=== PATIENT | female | born 1995 | race Caucasian/White ===

== ENCOUNTER 2017-07-12 20:50 | Emergency (ER) | payer SELFPAY ==
[~2017-07-12] VITALS: Ht 165.1 cm; Wt 86.7 kg
[~2017-07-12 20:50] MED LIST: BENADRYL25 MG PO; PEPCID40 MG PO; PREDNISONE20 MG PO
[2017-07-12 21:26] LABS: HEMATOCRIT 38.5 % (36.0-46.0); HEMOGLOBIN 12.9 G/DL (11.9-15.5); MCH 30.4 PG (29.0-34.0); MCHC 33.5 G/DL (30.0-36.0); MCV 90.8 FL (83-99); PLATELET COUNT 272 K/uL (156-360); RBC DIS.WIDTH-CV 11.6 % (11.8-14.6); RBC DIS.WIDTH-SD 38.3 % (39-53); RED BLOOD COUNT 4.24 M/uL (3.80-5.20); WHITE BLOOD COUNT 9.1 K/uL (4.1-10.2)
[2017-07-12 21:37] LABS: ALBUMIN 4.4 g/dL (3.2-4.8); CHLORIDE 107 mEq/L (99-109); SODIUM 139 mEq/L (136-147)
[2017-07-12 21:39] LABS: GLUCOSE 106 mg/dL (70-99); TOTAL PROTEIN 6.7 g/dL (6.4-8.3)
[2017-07-12 21:41] LABS: TOTAL BILIRUBIN 1.1 mg/dL (0.0-1.0)
[2017-07-12 21:43] LABS: ALKALINE PHOSPHATASE 78 IU/L (3-129); CREATININE 0.8 mg/dL (0.6-1.3); GFR ESTIMATE (CALCULATED) > 59 mL/min/
[2017-07-12 21:44] LABS: AST (GOT) 19 IU/L (2-34); UREA NITROGEN (BUN) 12 mg/dL (9-23)
[2017-07-12 21:46] LABS: ALT (GPT) 30 IU/L (3-49)
[2017-07-12 21:51] LABS: QUANTITATIVE HCG < 4.0 MIU/ML
[2017-07-12 22:08] LABS: APPEARANCE SL.HAZY ((CLEAR)); BILIRUBIN NEGATIVE; BLOOD NEGATIVE; COLOR YELLOW ((YELLOW)); GLUCOSE (STRIP) NEGATIVE; KETONES NEGATIVE; LEUKOCYTES TRACE; NITRITE NEGATIVE; PROTEIN (STRIP) NEGATIVE; SPECIFIC GRAVITY 1.034 (1.000-1.030); UROBILINOGEN 0.2 MG/DL (0.2-1.0)
[2017-07-12 22:16] LABS: BACTERIA NONE SEEN /HPF; EPITHELIAL CELLS 2+ /HPF; MUCUS TRACE /LPF; RED BLOOD CELLS 0-5 /HPF (0-5); UCUL ADDED? NO; WHITE BLOOD CELLS 0-5 /HPF (0-5)
[2017-07-13 00:22] VITALS: BP 122/79
== END 2017-07-13 00:28 | disposition home or self-care (01) ==
LOC: EME 20:50
PROVIDERS: Physician Assistant
DX: R10.31 Right lower quadrant pain (principal); F17.200 Nicotine dependence, unspecified, uncomplicated; Z88.6 Allergy status to analgesic agent
CPT/HCPCS: 74177; 76856; 80053; 81003; 84702; 85027; 93975; 99281; 99285; J2405; J3010; J7030

== ENCOUNTER 2017-10-16 17:24 | Emergency (ER) | payer BC ==
[~2017-10-16] VITALS: Ht 165.1 cm; Wt 86.0 kg
[2017-10-16] MEDS ORDERED: ULTRAM50 MG PO (21:42)
[2017-10-16 21:56] VITALS: BP 157/86
== END 2017-10-16 21:57 | disposition home or self-care (01) ==
LOC: EME 17:24
DX: S30.0XXA Contusion of lower back and pelvis, initial encounter (principal); Y09 Assault by unspecified means; M51.37 Other intervertebral disc degeneration, lumbosacral region; F17.200 Nicotine dependence, unspecified, uncomplicated; Z88.6 Allergy status to analgesic agent
CPT/HCPCS: 72100; 99281; 99284